=== PATIENT | female | born 1950 | race African-American/Black ===

== ENCOUNTER 2016-10-25 16:44 | Emergency (ER) | payer MEDICARE ==
[~2016-10-25] VITALS: Ht 157.5 cm; Wt 72.6 kg
[~2016-10-25 16:44] MED LIST: ALPR0.5T PO; AZIT1PAC9 PO; CLON0.3T PO; CRESTOR40 MG PO; CYCL10TA2 PO; DICL100G18 TP; FURO-68 PO; HYDR-2762 PO; IBUP-1060 PO; LUBI24CA7 PO; NITR1PAT9 TD; TRAM50TA PO; WARF-78 PO
[2016-10-25 17:24] LABS: BASO % 1 % (0-3); EOS % 3 % (0-3); HEMATOCRIT 37.7 % (36.0-47.0); HEMOGLOBIN 12.1 g/dL (12.0-15.5); LYMPH # 2.9 x10^3/uL (1.0-4.8); LYMPH % 34 % (24-48); MEAN CORPUSCULAR HEMOGLOBIN 22 pg (25-35); MEAN CORPUSCULAR HGB CONC 32 g/dL (31-37); MEAN CORPUSCULAR VOLUME 69 fL (79-100); MONO % 9 % (0-9); NEUT % 54 % (31-73); PLATELET COUNT 214 x10^3/uL (140-400); RED BLOOD COUNT 5.48 x10^6/uL (3.50-5.40); RED CELL DISTRIBUTION WIDTH 16.7 % (11.5-14.5); WHITE BLOOD COUNT 8.4 x10^3/uL (4.0-11.0)
[2016-10-25] MEDS ORDERED: CARV12.52 PO (17:25)
[2016-10-25] MEDS ORDERED: VALS320T2 PO (17:25)
[2016-10-25] MEDS ORDERED: TIZA4TAB PO (17:25)
[2016-10-25] MEDS ORDERED: TORS20TA2 PO (17:25)
[2016-10-25] MEDS ORDERED: AMLO10TA2 PO (17:25)
[2016-10-25] MEDS ORDERED: EZET10TA18 PO (17:25)
--- NOTE | 2016-10-25 17:49 | RAD ---
CT scan of the head without contrast 10/25/2016 Clinical History: Dizziness. Technique: Unenhanced, contiguous, 5 mm axial sections were obtained through the head. One or more of the following individualized dose reduction techniques were utilized for this study: 1. Automated exposure control. 2. Adjustment of the mA and/or kV according to patient size. 3. Use of iterative reconstruction technique. Findings: Comparison study is dated 08/24/2008. There is generalized parenchymal atrophy. Areas of decreased attenuation are seen within the periventricular and subcortical white matter of both cerebral hemispheres consistent with areas of small vessel ischemic disease. No acute parenchymal abnormality is seen. No extra-axial fluid collection is noted. No skull fracture is seen. Impression: No acute intracranial abnormality is seen. Electronically signed by: Seth Rodriguez MD (10/25/2016 5:47 PM) [facility]
[2016-10-25 17:53] LABS: CALCIUM 8.7 mg/dL (8.5-10.1); CREATININE 1.9 mg/dL (0.6-1.0); GFR 31.8; POTASSIUM 3.9 mmol/L (3.5-5.1)
[2016-10-25 17:59] LABS: ALBUMIN 3.5 g/dL (3.4-5.0); ALBUMIN/GLOBULIN RATIO 0.9 (1.0-1.7); TOTAL BILIRUBIN 0.3 mg/dL (0.2-1.0); TOTAL PROTEIN 7.5 g/dL (6.4-8.2)
[2016-10-25 18:16] LABS: BILIRUBIN,URINE NEGATIVE (NEG); GLUCOSE,URINE NEGATIVE (NEG); NITRITE,URINE NEGATIVE (NEG); PROTEIN,URINE NEGATIVE (NEG-TRACE); UROBILINOGEN,URINE 0.2 mg/dL (0.2 mg/dL)
[2016-10-25 18:24] LABS: BACTERIA,URINE FEW /HPF (0-FEW); RBC,URINE 0 /HPF (0-2); SQUAMOUS EPITHELIAL CELL,UR FEW /LPF
--- NOTE | 2016-10-25 18:32 | PHYS DOC ---
Past Medical History Past Medical History: Hypertension Additional Past Medical Histor: "BLOOD CLOTS" Past Surgical History: Appendectomy, Hysterectomy Additional Past Surgical Histo: THYROID, HERNIA REPAIR Alcohol Use: None Drug Use: None Adult General Chief Complaint Chief Complaint: DIZZY/LIGHT HEADED HPI HPI Patient is a 66 year old -[place] female with history of malignant hypertension recently released from [facility] for the same. Patient is discharged home on Coreg 12,5 mg twice a day. Since starting Coreg, patient reports dizziness lightheadedness upon standing. Patient's blood pressure triage noted to be 90 over 60sShe also reports mild headache. She denies change in vision, chest pain, shortness of breath, palpitations, focal extremity weakness or loss of sensation. No interval episodes or falls. No chills, nausea vomiting or sweats. Other acute symptoms or complaints. . Review of Systems Review of Systems Review symptoms as per history of present illness. All other review symptoms are negative. Current Medications Current Medications Current Medications Medications (Trade) Dose Ordered Sig/Mason Start Time Stop Time Status Last Admin Dose Admin Fentanyl Citrate (Fentanyl 2ml Vial) 50 mcg 1X ONCE 10/25/16 19:45 10/25/16 19:46 DC 10/25/16 19:28 50 MCG Ondansetron HCl (Zofran) 4 mg 1X ONCE 10/25/16 19:30 10/25/16 19:31 DC 10/25/16 19:28 4 MG Allergies Allergies Allergies Coded Allergies Type Severity Reaction Last Updated Verified prochlorperazine Allergy Intermediate 10/30/13 No Physical Exam Physical Exam Constitutional: Well developed, well nourished, no acute distress, non-toxic appearance. [] HENT: Normocephalic, atraumatic, bilateral external ears normal, oropharynx moist, no oral exudates, nose normal. [] Eyes: PERRLA, EOMI, conjunctiva normal, no discharge. [] Neck: Normal range of motion, no tenderness, supple, no stridor. [] Cardiovascular:Heart rate regular rhythm, no murmur [] Lungs & Thorax: Bilateral breath sounds clear to auscultation [] Abdomen: Bowel sounds normal, soft, no tenderness, no masses, no pulsatile masses. [] Skin: Warm, dry, no erythema, no rash. [] Back: No tenderness, no CVA tenderness. [] Extremities: No tenderness, no cyanosis, no clubbing, ROM intact, no edema. [] Neurologic: Alert and oriented X 3, cranial nerves II through XII grossly intact , normal motor function, normal sensory function, no focal deficits noted. [] Psychologic: Affect normal, judgement normal, mood normal. [] Current Patient Data Vital Signs Vital Signs Date Time Temp Pulse Resp B/P (MAP) Pulse Ox O2 Delivery O2 Flow Rate FiO2 10/25/16 19:26 60 18 139/65 (89) 98 Room Air 10/25/16 17:01 98.0 98.0 Lab Values Laboratory Tests Test 10/25/16 16:57 10/25/16 17:00 10/25/16 18:09 Glucose (Fingerstick) 84 mg/dL (70-99) White Blood Count 8.4 x10^3/uL (4.0-11.0) Red Blood Count 5.48 x10^6/uL (3.50-5.40) H Hemoglobin 12.1 g/dL (12.0-15.5) Hematocrit 37.7 % (36.0-47.0) Mean Corpuscular Volume 69 fL (79-100) L Mean Corpuscular Hemoglobin 22 pg (25-35) L Mean Corpuscular Hemoglobin Concent 32 g/dL (31-37) Red Cell Distribution Width 16.7 % (11.5-14.5) H Platelet Count 214 x10^3/uL (140-400) Neutrophils (%) (Auto) 54 % (31-73) Lymphocytes (%) (Auto) 34 % (24-48) Monocytes (%) (Auto) 9 % (0-9) Eosinophils (%) (Auto) 3 % (0-3) Basophils (%) (Auto) 1 % (0-3) Neutrophils # (Auto) 4.5 x10^3uL (1.8-7.7) Lymphocytes # (Auto) 2.9 x10^3/uL (1.0-4.8) Monocytes # (Auto) 0.8 x10^3/uL (0.0-1.1) Eosinophils # (Auto) 0.2 x10^3/uL (0.0-0.7) Basophils # (Auto) 0.0 x10^3/uL (0.0-0.2) Prothrombin Time 27.1 SEC (11.7-14.0) H Prothrombin Time INR 2.7 (0.8-1.1) H Sodium Level 142 mmol/L (136-145) Potassium Level 3.9 mmol/L (3.5-5.1) Chloride Level 104 mmol/L (98-107) Carbon Dioxide Level 28 mmol/L (21-32) Anion Gap 10 (6-14) Blood Urea Nitrogen 32 mg/dL (7-20) H Creatinine 1.9 mg/dL (0.6-1.0) H Estimated GFR (Cockcroft-Gault) 31.8 BUN/Creatinine Ratio 17 (6-20) Glucose Level 90 mg/dL (70-99) Calcium Level 8.7 mg/dL (8.5-10.1) Total Bilirubin 0.3 mg/dL (0.2-1.0) Aspartate Amino Transferase (AST) 15 U/L (15-37) Alanine Aminotransferase (ALT) 20 U/L (14-59) Alkaline Phosphatase 102 U/L (46-116) Troponin I Quantitative < 0.017 ng/mL (0.000-0.055) Total Protein 7.5 g/dL (6.4-8.2) Albumin 3.5 g/dL (3.4-5.0) Albumin/Globulin Ratio 0.9 (1.0-1.7) L Thyroid Stimulating Hormone (TSH) 0.682 uIU/mL (0.358-3.74) Urine Collection Type Unknown Urine Color Yellow Urine Clarity Clear Urine pH 5.0 Urine Specific [place] 1.010 Urine Protein Negative mg/dL (NEG-TRACE) Urine Glucose (UA) Negative mg/dL (NEG) Urine Ketones (Stick) Negative mg/dL (NEG) Urine Blood Negative (NEG) Urine Nitrite Negative (NEG) Urine Bilirubin Negative (NEG) Urine Urobilinogen Dipstick 0.2 mg/dL (0.2 mg/dL) Urine Leukocyte Esterase Moderate (NEG) Urine RBC 0 /HPF (0-2) Urine WBC 5-10 /HPF (0-4) Urine Squamous Epithelial Cells Few /LPF Urine Amorphous Sediment Present /HPF Urine Bacteria Few /HPF (0-FEW) Urine Hyaline Casts Few /HPF Urine Mucus Slight /LPF Laboratory Tests 10/25/16 17:00 Laboratory Tests 10/25/16 17:00 EKG EKG [EKG: Normal sinus rhythm, no acute ST-T wave changes] Radiology/Procedures Radiology/Procedures [CT head: No acute intracranial process per etiology report.] Course & Med Decision Making Course & Med Decision Making Pertinent Labs and Imaging studies reviewed. (See chart for details) [Patient without focal neurologic deficits. Blood pressure improved without treatment. Patient with noted urinary tract infection, possibly contributing to dizziness and headache. Rocephin given. Case reviewed with Dr. Nicole in detail. Recommends continued home medications and office follow-up. Reinforced with patient warts of discontinue metoprolol her previous blood pressure medications after starting Coreg. Patient verbalized understanding agreement with discharge plans.] Dragon Disclaimer Dragon Disclaimer This electronic medical record was generated, in whole or in part, using a voice recognition dictation system. Departure Departure Impression: Primary Impression: Dizziness Additional Impressions: Headache Hypotension Disposition: HOME, SELF-CARE Condition: GOOD Referrals: KALI PAGE MD (PCP) Problem Qualifiers SYLVIE LARIOS DO Oct 25, 2016 18:32
[2016-10-25 18:56] LABS: INR 2.7 (0.8-1.1); PROTHROMBIN TIME PATIENT 27.1 SEC (11.7-14.0)
[2016-10-25 19:26] VITALS: BP 139/65
[2016-10-25] MEDS: fentaNYL PF VIAL 100 MCG/2 ML VIAL IM ONE (19:28)
[2016-10-25] MEDS ORDERED: ONDANSETRON PF 4 MG/2 ML VIAL. IV ONE (19:30)
[2016-10-25] MEDS ORDERED: fentaNYL PF VIAL 100 MCG/2 ML VIAL IV ONE (19:45)
--- NOTE | 2016-10-26 07:06 | EKG ---
[facility] [address] [place] [address] Test Date: 2016-10-25 Test Time: 16:53:53 Pat Name: NORA SOLIS Department: Room: Gender: F [employer] Supervisor: : [id number] Requested By: SYLVIE LARIOS Order Number: [id number] Reading MD: Aster Calvillo Measurements Intervals [place] Rate: 77 P: 39 OK: 128 QRS: 3 QRSD: 84 T: 39 QT: 356 QTc: 405 Interpretive Statements SINUS RHYTHM NORMAL EKG Electronically Signed On 10-27-2016 20:24:00 CDT by Aster Calvillo
== END 2016-10-25 19:51 | disposition home or self-care (01) ==
LOC: ER 16:44
DX: R42 Dizziness and giddiness (principal); R51 Headache; I95.9 Hypotension, unspecified; I10 Essential (primary) hypertension; E07.9 Disorder of thyroid, unspecified; Z90.710 Acquired absence of both cervix and uterus; Z88.8 Allergy status to other drugs, medicaments and biological substances
CPT/HCPCS: 36415; 70450; 80053; 81001; 82962; 84443; 84484; 85025; 85610; 87086; 93005; 96374; 96375; 99285; J2405; J3010

== ENCOUNTER 2017-05-05 18:50 | Inpatient (IN) | payer MEDICARE ==
[2017-05-05 19:47] LABS: BILIRUBIN,URINE SMALL (NEG); CLARITY,URINE CLEAR; COLOR,URINE AMBER; GLUCOSE,URINE NEGATIVE (NEG); NITRITE,URINE NEGATIVE (NEG); PROTEIN,URINE 30 mg/dL (NEG-TRACE)
[2017-05-05 19:51] LABS: FECAL OB PT POSITIVE (NEG); NEG OBC FOB NEG; POS OBC FOB POS
[2017-05-05 19:54] LABS: BACTERIA,URINE FEW /HPF (0-FEW); SQUAMOUS EPITHELIAL CELL,UR FEW /LPF
[2017-05-05 19:59] LABS: ADD MAN DIFF? NO
[2017-05-05 20:01] LABS: BASO % 1 % (0-3); EOS # 0.2 x10^3/uL (0.0-0.7); EOS % 3 % (0-3); HEMATOCRIT 35.8 % (36.0-47.0); HEMOGLOBIN 11.5 g/dL (12.0-15.5); LYMPH # 2.6 x10^3/uL (1.0-4.8); LYMPH % 35 % (24-48); MEAN CORPUSCULAR HEMOGLOBIN 22 pg (25-35); MEAN CORPUSCULAR HGB CONC 32 g/dL (31-37); MEAN CORPUSCULAR VOLUME 69 fL (79-100); MONO # 0.6 x10^3/uL (0.0-1.1); MONO % 8 % (0-9); NEUT % 54 % (31-73); PLATELET COUNT 200 x10^3/uL (140-400); RED BLOOD COUNT 5.19 x10^6/uL (3.50-5.40); RED CELL DISTRIBUTION WIDTH 16.9 % (11.5-14.5); WHITE BLOOD COUNT 7.4 x10^3/uL (4.0-11.0)
[2017-05-05 20:11] LABS: ANION GAP 5 (6-14); BLOOD UREA NITROGEN 13 mg/dL (7-20); CALCIUM 8.3 mg/dL (8.5-10.1); CARBON DIOXIDE 30 mmol/L (21-32); CHLORIDE 108 mmol/L (98-107); GFR 66.7; GLUCOSE 94 mg/dL (70-99); POTASSIUM 3.8 mmol/L (3.5-5.1); SODIUM 143 mmol/L (136-145)
[2017-05-05 20:13] LABS: INR 2.8 (0.8-1.1); PARTIAL THROMBOPLASTIN TIME 45 SEC (24-38); PROTHROMBIN TIME PATIENT 27.9 SEC (11.7-14.0)
[2017-05-05 20:16] LABS: ANISOCYTOSIS SLIGHT; HYPOCHROMIA MOD; MICROCYTOSIS MOD; PLT ESTIMATE ADEQUATE (ADEQUATE); POIKILOCYTOSIS SLIGHT
[2017-05-05 20:17] LABS: ALBUMIN 3.2 g/dL (3.4-5.0); ALK PHOS 108 U/L (46-116); ALT (SGPT) 22 U/L (14-59); AST (SGOT) 22 U/L (15-37); DIRECT BILIRUBIN 0.1 mg/dL (0.0-0.2); LIPASE 124 U/L (73-393); SCHISTOCYTES FEW; TEAR DROP CELLS FEW; TOTAL BILIRUBIN 0.3 mg/dL (0.2-1.0); TOTAL PROTEIN 6.3 g/dL (6.4-8.2)
[2017-05-05 20:19] LABS: TROPONINI < 0.017 ng/mL (0.000-0.055)
[2017-05-05 20:25] LABS: CREATINE KINASE 85 U/L (26-192)
[2017-05-05] MEDS: IV NORMAL SALINE 1000ML BAG 1,000 ML IV ×2 (20:25→22:43)
[2017-05-05] MEDS: MORPHINE SULFATE 4 MG/ML DISP.SYRIN. IV (20:26)
[2017-05-05 20:27] LABS: CKMB INDEX 0.6 % (0-4); CKMB MASS < 0.5 ng/mL (0.0-3.6)
[2017-05-05] MEDS: 0.9 % SODIUM CHLORIDE 10 ML DISP.SYRIN. IV (20:27)
[2017-05-05] MEDS ORDERED: CONTRAST GIVEN MC (20:45)
[2017-05-05] MEDS ORDERED: ACETAMINOPHEN 325 MG TABLET. PO (20:45)
[2017-05-05] MEDS ORDERED: ONDANSETRON PF 4 MG/2 ML VIAL. IV (20:45)
[2017-05-05] MEDS: IOHEXOL 300 MG/ML 100ML VIAL. IV (20:54)
[2017-05-05] MEDS: PANTOPRAZOLE IV PUSH 40 MG VIAL. IVP (21:23)
[2017-05-05] MEDS: fentaNYL PF VIAL 100 MCG/2 ML VIAL IV (22:51)
[2017-05-06] MEDS: fentaNYL PF VIAL 100 MCG/2 ML VIAL IV ×4 (04:13→18:04)
[2017-05-06] MEDS: IV NORMAL SALINE 1000ML BAG 1,000 ML IV ×2 (04:15→17:59)
[2017-05-06 04:25] LABS: ADD MAN DIFF? NO
[2017-05-06 04:31] LABS: BASO % 0 % (0-3); EOS # 0.2 x10^3/uL (0.0-0.7); EOS % 3 % (0-3); HEMATOCRIT 30.4 % (36.0-47.0); HEMOGLOBIN 9.9 g/dL (12.0-15.5); LYMPH # 2.3 x10^3/uL (1.0-4.8); LYMPH % 32 % (24-48); MEAN CORPUSCULAR HEMOGLOBIN 22 pg (25-35); MEAN CORPUSCULAR HGB CONC 33 g/dL (31-37); MEAN CORPUSCULAR VOLUME 69 fL (79-100); MONO # 0.7 x10^3/uL (0.0-1.1); MONO % 10 % (0-9); NEUT % 55 % (31-73); PLATELET COUNT 181 x10^3/uL (140-400); RED BLOOD COUNT 4.43 x10^6/uL (3.50-5.40); RED CELL DISTRIBUTION WIDTH 16.8 % (11.5-14.5); WHITE BLOOD COUNT 7.2 x10^3/uL (4.0-11.0)
[2017-05-06] MEDS ORDERED: ONDANSETRON PF 4 MG/2 ML VIAL. IV (10:30)
[2017-05-06] MEDS ORDERED: CYCLOBENZAPRINE 10 MG TABLET. PO (10:30)
[2017-05-06] MEDS: LISINOPRIL 10 MG TABLET PO (11:26)
[2017-05-06] MEDS: LUBIPROSTONE 8 MCG CAPSULE PO (11:26)
[2017-05-06] MEDS: amLODIPine BESYLATE 10 MG TABLET PO (11:27)
[2017-05-06] MEDS: LOSARTAN POTASSIUM 50 MG TABLET. PO (11:27)
[2017-05-06] MEDS: CARVEDILOL 12.5 MG TABLET. PO ×2 (11:28→18:01)
[2017-05-06] MEDS: DICLOFENAC SODIUM 1% TOPICAL GEL 100GM TUBE. TP ×3 (13:00→21:14)
[2017-05-06] MEDS: ALPRAZolam 0.5 MG TABLET PO ×2 (16:01→21:12)
[2017-05-06] MEDS: HYDROcodone/APAP 7.5/325MG 1 TAB TABLET PO (16:01)
[2017-05-06] MEDS: PANTOPRAZOLE 40 MG TABLET.DR. PO (16:01)
[2017-05-06] MEDS: FUROSEMIDE 40 MG TABLET. PO (16:01)
[2017-05-06 16:48] LABS: % SAT IRON 18 % (15-34); IRON,SERUM 42 ug/dL (50-170)
[2017-05-06] MEDS: ATORVASTATIN CALCIUM 40 MG TABLET. PO (21:11)
[2017-05-06] MEDS: cloNIDine HCL 0.2 MG TABLET PO (21:12)
[2017-05-06] MEDS: tiZANidine 4 MG TABLET. PO (21:12)
[2017-05-07] MEDS: HYDROcodone/APAP 7.5/325MG 1 TAB TABLET PO ×3 (04:03→21:05)
[2017-05-07 07:55] LABS: ADD MAN DIFF? NO
[2017-05-07 08:09] LABS: BASO % 0 % (0-3); EOS # 0.2 x10^3/uL (0.0-0.7); EOS % 4 % (0-3); HEMOGLOBIN 9.9 g/dL (12.0-15.5); LYMPH # 2.1 x10^3/uL (1.0-4.8); LYMPH % 36 % (24-48); MEAN CORPUSCULAR HEMOGLOBIN 22 pg (25-35); MEAN CORPUSCULAR HGB CONC 32 g/dL (31-37); MEAN CORPUSCULAR VOLUME 68 fL (79-100); MONO # 0.5 x10^3/uL (0.0-1.1); MONO % 8 % (0-9); NEUT % 52 % (31-73); PLATELET COUNT 163 x10^3/uL (140-400); RED BLOOD COUNT 4.53 x10^6/uL (3.50-5.40); WHITE BLOOD COUNT 5.8 x10^3/uL (4.0-11.0)
[2017-05-07 08:23] LABS: ANION GAP 8 (6-14); BLOOD UREA NITROGEN 10 mg/dL (7-20); CARBON DIOXIDE 27 mmol/L (21-32); CHLORIDE 108 mmol/L (98-107); GFR 66.7; GLUCOSE 97 mg/dL (70-99); POTASSIUM 3.7 mmol/L (3.5-5.1); SODIUM 143 mmol/L (136-145)
[2017-05-07 08:27] LABS: PROTHROMBIN TIME PATIENT 44.7 SEC (11.7-14.0)
[2017-05-07] MEDS: LISINOPRIL 10 MG TABLET PO (08:32)
[2017-05-07] MEDS: LUBIPROSTONE 8 MCG CAPSULE PO (08:32)
[2017-05-07] MEDS: amLODIPine BESYLATE 10 MG TABLET PO (08:32)
[2017-05-07] MEDS: LOSARTAN POTASSIUM 50 MG TABLET. PO (08:33)
[2017-05-07] MEDS: cloNIDine HCL 0.2 MG TABLET PO ×2 (08:33→21:04)
[2017-05-07] MEDS: PANTOPRAZOLE 40 MG TABLET.DR. PO (08:33)
[2017-05-07] MEDS: ALPRAZolam 0.5 MG TABLET PO ×3 (08:33→21:04)
[2017-05-07] MEDS: FUROSEMIDE 40 MG TABLET. PO ×2 (08:34→13:28)
[2017-05-07] MEDS: CARVEDILOL 12.5 MG TABLET. PO ×2 (08:34→17:20)
[2017-05-07] MEDS: DICLOFENAC SODIUM 1% TOPICAL GEL 100GM TUBE. TP ×4 (08:34→21:06)
[2017-05-07 08:37] LABS: INR 5.2 (0.8-1.1)
[2017-05-07] MEDS: PHYTONADIONE (VIT K1) IV 5 MG in IV DEXTROSE 5% 50 ML IV (13:28)
[2017-05-07] MEDS: cefTRIAXone IV Push 1 GM VIAL. IVP (13:28)
[2017-05-07] MEDS: tiZANidine 4 MG TABLET. PO (21:04)
[2017-05-07] MEDS: ATORVASTATIN CALCIUM 40 MG TABLET. PO (21:04)
[2017-05-08 05:34] LABS: ADD MAN DIFF? NO
[2017-05-08 05:50] LABS: BASO % 0 % (0-3); EOS # 0.2 x10^3/uL (0.0-0.7); EOS % 5 % (0-3); HEMOGLOBIN 10.5 g/dL (12.0-15.5); LYMPH # 2.2 x10^3/uL (1.0-4.8); LYMPH % 42 % (24-48); MEAN CORPUSCULAR HEMOGLOBIN 22 pg (25-35); MEAN CORPUSCULAR HGB CONC 32 g/dL (31-37); MEAN CORPUSCULAR VOLUME 69 fL (79-100); MONO # 0.4 x10^3/uL (0.0-1.1); MONO % 7 % (0-9); NEUT # 2.4 x10^3uL (1.8-7.7); NEUT % 46 % (31-73); PLATELET COUNT 170 x10^3/uL (140-400); RED CELL DISTRIBUTION WIDTH 16.9 % (11.5-14.5); WHITE BLOOD COUNT 5.2 x10^3/uL (4.0-11.0)
[2017-05-08 06:20] LABS: ALBUMIN 2.7 g/dL (3.4-5.0); ALBUMIN/GLOBULIN RATIO 0.8 (1.0-1.7); ALK PHOS 93 U/L (46-116); ALT (SGPT) 19 U/L (14-59); ANION GAP 7 (6-14); AST (SGOT) 20 U/L (15-37); BLOOD UREA NITROGEN 13 mg/dL (7-20); BUN/CREATININE RATIO 11 (6-20); CALCIUM 8.5 mg/dL (8.5-10.1); CARBON DIOXIDE 30 mmol/L (21-32); CHLORIDE 105 mmol/L (98-107); CREATININE 1.2 mg/dL (0.6-1.0); GFR 54.1; GLUCOSE 105 mg/dL (70-99); POTASSIUM 3.7 mmol/L (3.5-5.1); SODIUM 142 mmol/L (136-145); TOTAL BILIRUBIN 0.6 mg/dL (0.2-1.0)
[2017-05-08 06:35] LABS: INR 1.5 (0.8-1.1)
[2017-05-08] MEDS: HYDROcodone/APAP 7.5/325MG 1 TAB TABLET PO ×2 (06:37→13:31)
[2017-05-08] MEDS: DICLOFENAC SODIUM 1% TOPICAL GEL 100GM TUBE. TP ×4 (06:38→22:55)
[2017-05-08] MEDS: ALPRAZolam 0.5 MG TABLET PO ×3 (08:21→22:44)
[2017-05-08] MEDS: LUBIPROSTONE 8 MCG CAPSULE PO (08:21)
[2017-05-08] MEDS: MAGNESIUM CITRATE 296 ML SOLUTION. PO (08:21)
[2017-05-08] MEDS: PANTOPRAZOLE 40 MG TABLET.DR. PO (08:21)
[2017-05-08] MEDS: FUROSEMIDE 40 MG TABLET. PO ×2 (08:21→13:31)
[2017-05-08] MEDS: LISINOPRIL 10 MG TABLET PO (08:22)
[2017-05-08] MEDS: cloNIDine HCL 0.2 MG TABLET PO ×2 (08:22→22:44)
[2017-05-08] MEDS: LOSARTAN POTASSIUM 50 MG TABLET. PO (08:22)
[2017-05-08] MEDS: amLODIPine BESYLATE 10 MG TABLET PO (08:23)
[2017-05-08] MEDS: CARVEDILOL 12.5 MG TABLET. PO ×2 (08:23→18:37)
[2017-05-08] MEDS: cefTRIAXone IV Push 1 GM VIAL. IVP (13:25)
[2017-05-08] MEDS: POLYETHYLENE GLYCOL 3350 238 GM POWDER PO (15:00)
[2017-05-08] MEDS ORDERED: CONTRAST GIVEN MC (16:00)
[2017-05-08] MEDS: IOHEXOL 300 MG/ML 100ML VIAL. IV (16:00)
[2017-05-08 17:14] LABS: POC GLUCOSE 90 mg/dL (70-99)
[2017-05-08 17:15] LABS: CHOLESTEROL 139 mg/dL (0-200); HDLC 45 mg/dL (40-60); LDLC 79 mg/dL (0-100); NON-HDL CHOLESTEROL 94 mg/dL (0-129); TRIGLYCERIDES 74 mg/dL (0-150); VLDLC 15 mg/dL (0-40)
[2017-05-08 17:21] LABS: CHOLESTEROL/HDL RATIO 3.1
[2017-05-08] MEDS: BISACODYL 5 MG TABLET.DR. PO (17:30)
[2017-05-08] MEDS: ASPIRIN ENTERIC COATED 325 MG TABLET.DR. PO (18:36)
[2017-05-08] MEDS: ATORVASTATIN CALCIUM 40 MG TABLET. PO (22:44)
[2017-05-08] MEDS: tiZANidine 4 MG TABLET. PO (22:44)
[2017-05-08] MEDS: fentaNYL PF VIAL 100 MCG/2 ML VIAL IV (22:45)
[2017-05-09] MEDS: fentaNYL PF VIAL 100 MCG/2 ML VIAL IV ×2 (02:53→14:31)
[2017-05-09] MEDS: FUROSEMIDE 40 MG TABLET. PO ×2 (07:59→17:16)
[2017-05-09] MEDS: amLODIPine BESYLATE 10 MG TABLET PO (07:59)
[2017-05-09] MEDS: cloNIDine HCL 0.2 MG TABLET PO ×2 (07:59→21:53)
[2017-05-09] MEDS: LOSARTAN POTASSIUM 50 MG TABLET. PO (08:00)
[2017-05-09] MEDS: LUBIPROSTONE 8 MCG CAPSULE PO (08:00)
[2017-05-09] MEDS: ASPIRIN ENTERIC COATED 325 MG TABLET.DR. PO (08:00)
[2017-05-09] MEDS: CARVEDILOL 12.5 MG TABLET. PO ×2 (08:00→17:00)
[2017-05-09] MEDS: LISINOPRIL 10 MG TABLET PO (08:00)
[2017-05-09] MEDS: ALPRAZolam 0.5 MG TABLET PO ×3 (08:01→20:26)
[2017-05-09] MEDS: PANTOPRAZOLE 40 MG TABLET.DR. PO (08:01)
[2017-05-09 08:02] LABS: ADD MAN DIFF? NO
[2017-05-09 08:13] LABS: BASO % 1 % (0-3); EOS # 0.2 x10^3/uL (0.0-0.7); EOS % 4 % (0-3); HEMATOCRIT 35.4 % (36.0-47.0); HEMOGLOBIN 11.2 g/dL (12.0-15.5); LYMPH # 2.1 x10^3/uL (1.0-4.8); LYMPH % 32 % (24-48); MEAN CORPUSCULAR HEMOGLOBIN 22 pg (25-35); MEAN CORPUSCULAR HGB CONC 32 g/dL (31-37); MEAN CORPUSCULAR VOLUME 69 fL (79-100); MONO # 0.4 x10^3/uL (0.0-1.1); MONO % 7 % (0-9); NEUT # 3.7 x10^3uL (1.8-7.7); NEUT % 57 % (31-73); PLATELET COUNT 169 x10^3/uL (140-400); RED BLOOD COUNT 5.15 x10^6/uL (3.50-5.40); RED CELL DISTRIBUTION WIDTH 16.4 % (11.5-14.5); WHITE BLOOD COUNT 6.5 x10^3/uL (4.0-11.0)
[2017-05-09 08:25] LABS: INR 1.3 (0.8-1.1)
[2017-05-09 08:34] LABS: ANION GAP 5 (6-14); BLOOD UREA NITROGEN 16 mg/dL (7-20); CALCIUM 8.4 mg/dL (8.5-10.1); CARBON DIOXIDE 34 mmol/L (21-32); CHLORIDE 104 mmol/L (98-107); CREATININE 1.1 mg/dL (0.6-1.0); GFR 59.6; GLUCOSE 86 mg/dL (70-99); POTASSIUM 3.9 mmol/L (3.5-5.1); SODIUM 143 mmol/L (136-145)
[2017-05-09] MEDS: DICLOFENAC SODIUM 1% TOPICAL GEL 100GM TUBE. TP ×4 (09:00→21:52)
[2017-05-09] MEDS ORDERED: LIDOCAINE 1% PF 2 ML VIAL. ID (12:45)
[2017-05-09] MEDS ORDERED: MIDAZOLAM HCL/PF 2 MG/2 ML VIAL. IV (12:45)
[2017-05-09] MEDS ORDERED: fentaNYL PF VIAL 100 MCG/2 ML VIAL IV (12:45)
[2017-05-09] MEDS: IV RINGERS,LACTATED 1000ML 1,000 ML IV ×2 (12:48→20:45)
[2017-05-09] MEDS ORDERED: PROPOFOL 20 ML IV (12:53)
[2017-05-09] MEDS: GADOBUTROL 10 MMOL/10 ML VIAL IV (16:45)
[2017-05-09] MEDS: cefTRIAXone IV Push 1 GM VIAL. IVP (17:16)
[2017-05-09] MEDS: HYDROcodone/APAP 7.5/325MG 1 TAB TABLET PO (17:16)
[2017-05-09 17:19] LABS: MRSA BY PCR Negative (Negative)
[2017-05-09 18:45] LABS: THYROID STIM HORMONE (TSH) 2.458 uIU/mL (0.358-3.74)
[2017-05-09 19:32] LABS: VITAMIN-B12 426 pg/mL (247-911)
[2017-05-09] MEDS ORDERED: NALOXONE 0.4 MG/ML VIAL. (20:02)
[2017-05-09] MEDS: NALOXONE 0.4 MG/ML VIAL. IV (20:10)
[2017-05-09] MEDS: tiZANidine 4 MG TABLET. PO (20:25)
[2017-05-09] MEDS: ATORVASTATIN CALCIUM 40 MG TABLET. PO (21:53)
[2017-05-09 22:02] LABS: POC GLUCOSE 110 mg/dL (70-99)
[2017-05-09 23:46] LABS: BARBITURATES NEG (NEG); BENZODIAZEPINES NEG (NEG); CANNABINOIDS NEG (NEG); COCAINE NEG (NEG); METHADONE NEG (NEG); OPIATES POS (NEG); PHENCYCLIDINE NEG (NEG)
[2017-05-09 23:47] LABS: AMPHETAMINE/METHAMPHETAMINE NEG (NEG); ETHANOL, URINE NEG (NEG)
[2017-05-10 04:11] LABS: INR 1.3 (0.8-1.1); PROTHROMBIN TIME PATIENT 15.3 SEC (11.7-14.0)
[2017-05-10 04:18] LABS: ANION GAP 7 (6-14); BLOOD UREA NITROGEN 21 mg/dL (7-20); CARBON DIOXIDE 30 mmol/L (21-32); CHLORIDE 100 mmol/L (98-107); CREATININE 1.3 mg/dL (0.6-1.0); GFR 49.1; GLUCOSE 112 mg/dL (70-99); POTASSIUM 3.9 mmol/L (3.5-5.1); SODIUM 137 mmol/L (136-145)
[2017-05-10 06:11] LABS: ADD MAN DIFF? NO
[2017-05-10 06:14] LABS: BASO % 1 % (0-3); EOS # 0.2 x10^3/uL (0.0-0.7); EOS % 3 % (0-3); HEMATOCRIT 35.6 % (36.0-47.0); HEMOGLOBIN 11.3 g/dL (12.0-15.5); LYMPH # 2.4 x10^3/uL (1.0-4.8); LYMPH % 30 % (24-48); MEAN CORPUSCULAR HEMOGLOBIN 22 pg (25-35); MEAN CORPUSCULAR HGB CONC 32 g/dL (31-37); MEAN CORPUSCULAR VOLUME 69 fL (79-100); MONO # 0.6 x10^3/uL (0.0-1.1); MONO % 7 % (0-9); NEUT # 4.8 x10^3uL (1.8-7.7); NEUT % 59 % (31-73); PLATELET COUNT 178 x10^3/uL (140-400); RED BLOOD COUNT 5.18 x10^6/uL (3.50-5.40); RED CELL DISTRIBUTION WIDTH 16.6 % (11.5-14.5)
[2017-05-10] MEDS: CARVEDILOL 12.5 MG TABLET. PO ×2 (08:00→17:00)
[2017-05-10] MEDS: ALPRAZolam 0.5 MG TABLET PO ×2 (09:00→12:16)
[2017-05-10] MEDS: FUROSEMIDE 40 MG TABLET. PO ×2 (09:00→12:34)
[2017-05-10] MEDS: DICLOFENAC SODIUM 1% TOPICAL GEL 100GM TUBE. TP ×4 (09:00→20:52)
[2017-05-10] MEDS: ASPIRIN ENTERIC COATED 325 MG TABLET.DR. PO (12:33)
[2017-05-10] MEDS: cefTRIAXone IV Push 1 GM VIAL. IVP (12:33)
[2017-05-10] MEDS: LISINOPRIL 10 MG TABLET PO (12:34)
[2017-05-10] MEDS: CHOLECALCIFEROL (VITAMIN D3) 5,000 UNIT CAPSULE PO (12:34)
[2017-05-10] MEDS: LOSARTAN POTASSIUM 50 MG TABLET. PO (12:34)
[2017-05-10] MEDS: amLODIPine BESYLATE 10 MG TABLET PO (12:35)
[2017-05-10] MEDS: CALCIUM CARBONATE 500 MG TABLET PO ×2 (12:35→20:51)
[2017-05-10] MEDS: PANTOPRAZOLE 40 MG TABLET.DR. PO (12:35)
[2017-05-10] MEDS: cloNIDine HCL 0.2 MG TABLET PO ×3 (12:35→20:55)
[2017-05-10] MEDS: LUBIPROSTONE 8 MCG CAPSULE PO (12:36)
[2017-05-10] MEDS: ONDANSETRON PF 4 MG/2 ML VIAL. IV (12:53)
[2017-05-10] MEDS: ATORVASTATIN CALCIUM 40 MG TABLET. PO (20:51)
[2017-05-10 20:54] LABS: POC GLUCOSE 152 mg/dL (70-99)
[2017-05-11 04:30] LABS: ADD MAN DIFF? NO
[2017-05-11 04:36] LABS: BASO % 0 % (0-3); EOS # 0.2 x10^3/uL (0.0-0.7); EOS % 2 % (0-3); HEMATOCRIT 35.8 % (36.0-47.0); HEMOGLOBIN 11.5 g/dL (12.0-15.5); LYMPH # 1.9 x10^3/uL (1.0-4.8); LYMPH % 28 % (24-48); MEAN CORPUSCULAR HEMOGLOBIN 22 pg (25-35); MEAN CORPUSCULAR HGB CONC 32 g/dL (31-37); MEAN CORPUSCULAR VOLUME 68 fL (79-100); MONO # 0.6 x10^3/uL (0.0-1.1); MONO % 9 % (0-9); NEUT % 60 % (31-73); PLATELET COUNT 202 x10^3/uL (140-400); RED BLOOD COUNT 5.25 x10^6/uL (3.50-5.40); RED CELL DISTRIBUTION WIDTH 16.3 % (11.5-14.5); WHITE BLOOD COUNT 6.6 x10^3/uL (4.0-11.0)
[2017-05-11 05:29] LABS: ANION GAP 8 (6-14); BLOOD UREA NITROGEN 30 mg/dL (7-20); CARBON DIOXIDE 31 mmol/L (21-32); CHLORIDE 99 mmol/L (98-107); CREATININE 2.6 mg/dL (0.6-1.0); GFR 22.1; GLUCOSE 112 mg/dL (70-99); POTASSIUM 3.9 mmol/L (3.5-5.1); SODIUM 138 mmol/L (136-145)
[2017-05-11 05:50] LABS: THYROID STIM HORMONE (TSH) 1.013 uIU/mL (0.358-3.74)
[2017-05-11 05:50] LABS: FREE T4 1.09 ng/dL (0.76-1.46)
[2017-05-11] MEDS: PANTOPRAZOLE 40 MG TABLET.DR. PO (07:30)
[2017-05-11 08:54] LABS: POC GLUCOSE 107 mg/dL (70-99)
[2017-05-11] MEDS: DICLOFENAC SODIUM 1% TOPICAL GEL 100GM TUBE. TP ×4 (09:00→21:34)
[2017-05-11] MEDS: FUROSEMIDE 40 MG TABLET. PO ×2 (09:00→14:33)
[2017-05-11] MEDS: LUBIPROSTONE 8 MCG CAPSULE PO (12:48)
[2017-05-11] MEDS: LISINOPRIL 10 MG TABLET PO (12:48)
[2017-05-11] MEDS: CHOLECALCIFEROL (VITAMIN D3) 5,000 UNIT CAPSULE PO (12:48)
[2017-05-11] MEDS: cloNIDine HCL 0.2 MG TABLET PO ×2 (12:49→23:00)
[2017-05-11] MEDS: LOSARTAN POTASSIUM 50 MG TABLET. PO (12:50)
[2017-05-11] MEDS: CARVEDILOL 12.5 MG TABLET. PO ×2 (12:52→17:29)
[2017-05-11] MEDS: amLODIPine BESYLATE 10 MG TABLET PO (12:52)
[2017-05-11] MEDS: CALCIUM CARBONATE 500 MG TABLET PO ×2 (12:52→21:13)
[2017-05-11] MEDS: ASPIRIN ENTERIC COATED 325 MG TABLET.DR. PO (12:53)
[2017-05-11] MEDS: IV NORMAL SALINE 1000ML BAG 1,000 ML IV (17:36)
[2017-05-11] MEDS: ATORVASTATIN CALCIUM 40 MG TABLET. PO (21:13)
[2017-05-12] MEDS: IV NORMAL SALINE 1000ML BAG 1,000 ML IV ×3 (01:06→16:44)
[2017-05-12 06:32] LABS: ADD MAN DIFF? NO
[2017-05-12 06:50] LABS: BASO % 0 % (0-3); EOS # 0.2 x10^3/uL (0.0-0.7); EOS % 3 % (0-3); HEMATOCRIT 32.6 % (36.0-47.0); HEMOGLOBIN 10.5 g/dL (12.0-15.5); LYMPH # 2.2 x10^3/uL (1.0-4.8); LYMPH % 31 % (24-48); MEAN CORPUSCULAR HEMOGLOBIN 22 pg (25-35); MEAN CORPUSCULAR HGB CONC 32 g/dL (31-37); MEAN CORPUSCULAR VOLUME 68 fL (79-100); MONO # 0.7 x10^3/uL (0.0-1.1); MONO % 10 % (0-9); NEUT % 56 % (31-73); PLATELET COUNT 174 x10^3/uL (140-400); RED BLOOD COUNT 4.78 x10^6/uL (3.50-5.40); RED CELL DISTRIBUTION WIDTH 16.5 % (11.5-14.5)
[2017-05-12 06:53] LABS: ANION GAP 9 (6-14); BLOOD UREA NITROGEN 43 mg/dL (7-20); CALCIUM 8.3 mg/dL (8.5-10.1); CARBON DIOXIDE 27 mmol/L (21-32); CHLORIDE 103 mmol/L (98-107); CREATININE 3.1 mg/dL (0.6-1.0); GLUCOSE 112 mg/dL (70-99); POTASSIUM 3.7 mmol/L (3.5-5.1); SODIUM 139 mmol/L (136-145)
[2017-05-12] MEDS: CHOLECALCIFEROL (VITAMIN D3) 5,000 UNIT CAPSULE PO (09:20)
[2017-05-12] MEDS: CALCIUM CARBONATE 500 MG TABLET PO ×2 (09:20→21:21)
[2017-05-12] MEDS: LUBIPROSTONE 8 MCG CAPSULE PO (09:20)
[2017-05-12] MEDS: amLODIPine BESYLATE 10 MG TABLET PO (09:21)
[2017-05-12] MEDS: CARVEDILOL 12.5 MG TABLET. PO ×2 (09:21→16:43)
[2017-05-12] MEDS: DICLOFENAC SODIUM 1% TOPICAL GEL 100GM TUBE. TP ×4 (09:22→21:22)
[2017-05-12] MEDS: ASPIRIN ENTERIC COATED 325 MG TABLET.DR. PO (09:22)
[2017-05-12] MEDS: PANTOPRAZOLE 40 MG TABLET.DR. PO (09:22)
[2017-05-12] MEDS: cloNIDine HCL 0.2 MG TABLET PO ×2 (09:22→21:22)
[2017-05-12] MEDS: ATORVASTATIN CALCIUM 40 MG TABLET. PO (21:21)
[2017-05-13] MEDS: IV NORMAL SALINE 1000ML BAG 1,000 ML IV (01:06)
[2017-05-13 05:09] LABS: ADD MAN DIFF? NO
[2017-05-13 05:17] LABS: BASO % 0 % (0-3); EOS # 0.3 x10^3/uL (0.0-0.7); EOS % 4 % (0-3); HEMATOCRIT 32.1 % (36.0-47.0); HEMOGLOBIN 10.1 g/dL (12.0-15.5); LYMPH # 2.1 x10^3/uL (1.0-4.8); LYMPH % 32 % (24-48); MEAN CORPUSCULAR HEMOGLOBIN 22 pg (25-35); MEAN CORPUSCULAR HGB CONC 32 g/dL (31-37); MEAN CORPUSCULAR VOLUME 69 fL (79-100); MONO # 0.6 x10^3/uL (0.0-1.1); MONO % 10 % (0-9); NEUT # 3.6 x10^3uL (1.8-7.7); NEUT % 54 % (31-73); PLATELET COUNT 151 x10^3/uL (140-400); RED BLOOD COUNT 4.65 x10^6/uL (3.50-5.40); WHITE BLOOD COUNT 6.7 x10^3/uL (4.0-11.0)
[2017-05-13 05:51] LABS: ANION GAP 8 (6-14); BLOOD UREA NITROGEN 27 mg/dL (7-20); CALCIUM 8.4 mg/dL (8.5-10.1); CARBON DIOXIDE 28 mmol/L (21-32); CHLORIDE 110 mmol/L (98-107); CREATININE 1.5 mg/dL (0.6-1.0); GFR 41.7; GLUCOSE 94 mg/dL (70-99); POTASSIUM 3.8 mmol/L (3.5-5.1); SODIUM 146 mmol/L (136-145)
[2017-05-13] MEDS: CARVEDILOL 12.5 MG TABLET. PO (08:00)
[2017-05-13] MEDS: PANTOPRAZOLE 40 MG TABLET.DR. PO (08:01)
[2017-05-13] MEDS: ASPIRIN ENTERIC COATED 325 MG TABLET.DR. PO (08:41)
[2017-05-13] MEDS: cloNIDine HCL 0.2 MG TABLET PO (08:42)
[2017-05-13] MEDS: LUBIPROSTONE 8 MCG CAPSULE PO (08:42)
[2017-05-13] MEDS: CHOLECALCIFEROL (VITAMIN D3) 5,000 UNIT CAPSULE PO (08:42)
[2017-05-13] MEDS: amLODIPine BESYLATE 10 MG TABLET PO (08:43)
[2017-05-13] MEDS: CALCIUM CARBONATE 500 MG TABLET PO (08:43)
[2017-05-13] MEDS: DICLOFENAC SODIUM 1% TOPICAL GEL 100GM TUBE. TP (09:26)
== END 2017-05-13 13:25 | disposition home health service (06) | DRG 377 ==
LOC: 1 WEST ICU 05-08 15:52 → ER 18:50 → 6 SOUTH 05-09 17:56 → 5 SOUTH 20:48
PROC: 0DB68ZX Excision of Stomach, Via Natural or Artificial Opening Endoscopic, Diagnostic (ICD-10-PCS; principal; 2017-05-09 13:02)
DX: K29.71 Gastritis, unspecified, with bleeding (principal); G93.41 Metabolic encephalopathy; N17.9 Acute kidney failure, unspecified; D68.9 Coagulation defect, unspecified; I50.32 Chronic diastolic (congestive) heart failure; E66.01 Morbid (severe) obesity due to excess calories; E11.22 Type 2 diabetes mellitus with diabetic chronic kidney disease; I13.0 Hypertensive heart and chronic kidney disease with heart failure and stage 1 through stage 4 chronic kidney disease, or unspecified chronic kidney disease; N39.0 Urinary tract infection, site not specified; C18.9 Malignant neoplasm of colon, unspecified; I48.2 Chronic atrial fibrillation; B96.81 Helicobacter pylori [H. pylori] as the cause of diseases classified elsewhere; D50.0 Iron deficiency anemia secondary to blood loss (chronic); E55.9 Vitamin D deficiency, unspecified; E78.5 Hyperlipidemia, unspecified; F03.90 Unspecified dementia, unspecified severity, without behavioral disturbance, psychotic disturbance, mood disturbance, and anxiety; N14.1 Nephropathy induced by other drugs, medicaments and biological substances; T45.515A Adverse effect of anticoagulants, initial encounter; T50.8X5A Adverse effect of diagnostic agents, initial encounter; F41.9 Anxiety disorder, unspecified; I25.10 Atherosclerotic heart disease of native coronary artery without angina pectoris; K21.9 Gastro-esophageal reflux disease without esophagitis; S80.00XA Contusion of unspecified knee, initial encounter; X58.XXXA Exposure to other specified factors, initial encounter; Y93.89 Activity, other specified; Y92.89 Other specified places as the place of occurrence of the external cause; N18.9 Chronic kidney disease, unspecified; Y99.8 Other external cause status; K59.00 Constipation, unspecified; Z79.01 Long term (current) use of anticoagulants; Z79.899 Other long term (current) drug therapy; Z82.49 Family history of ischemic heart disease and other diseases of the circulatory system; Z86.718 Personal history of other venous thrombosis and embolism; Z90.49 Acquired absence of other specified parts of digestive tract; Z90.710 Acquired absence of both cervix and uterus; Z68.33 Body mass index [BMI] 33.0-33.9, adult; Z88.7 Allergy status to serum and vaccine; Z88.8 Allergy status to other drugs, medicaments and biological substances; Z79.4 Long term (current) use of insulin
CPT/HCPCS: 36415; 70450; 70496; 70498; 70551; 72156; 73562; 74177; 78264; 80048; 80053; 80061; 80076; 80307; 81001; 82274; 82306; 82553; 82607; 82962; 83540; 83550; 83690; 84439; 84443; 84481; 84484; 85025; 85610; 85730; 86850; 86900; 86901; 87086; 87641; 88305; 88342; 93005; 93306; 93880; 95816; 96361; 96374; 96375; 97116-GP; 97162-GP; 97165-GO; 97168-GO; 97530-GP; 99285; 99285-25; A9541; A9585; C9113; J0696; J2270; J2310; J2405; J2704; J3010; J3430; J7030; J7120; Q9967